=== PATIENT | male | born 1990 | race Caucasian/White ===

== ENCOUNTER 2020-05-18 09:25 | Emergency (ER) | payer OTHER ==
[2020-05-18] MEDS ORDERED: KETOROLAC 30 MG/ML VIAL IM STA (11:00)
--- NOTE | 2020-05-18 11:07 | ED Physician Documentation ---
History of Present Illness - Stated complaint Stated Complaint: BACK PX - Chief complaint Chief Complaint: Back Pain - History obtained from History obtained from: Patient - Additonal information Additional information: 30yM, previously healthy p/w BL lower back pain that started suddenly while walking. Constant, aching, nonradiating, worse with movement, moderate severity. denies fevers, weakness, sensory loss, fecal/urinary incontinence or retention or saddle anesthesia. Review of Systems Constitutional: denies: Fever Musculoskeletal: reports: Back pain Neurologic: denies: Focal weakness, Numbness PD PAST MEDICAL HISTORY - Past Medical History Past Medical History: No Cardiovascular: None Respiratory: None Neuro: None Endocrine/Autoimmune: None GI: Other : None HEENT: None Psych: None Musculoskeletal: None Derm: None - Past Surgical History Past Surgical History: No - Present Medications Home Medications: Ambulatory Orders Medication Instructions Recorded Confirmed Ibuprofen [Motrin] 600 mg PO Q6H PRN #30 tab 05/18/20 - Allergies Allergies/Adverse Reactions: Allergies Allergy/AdvReac Type Severity Reaction Status Date / Time Sulfa (Sulfonamide Allergy Unknown Verified 05/18/20 09:29 Antibiotics) - Social History Does the pt smoke?: No Smoking Status: Never smoker Does the pt drink ETOH?: Yes Does the pt have substance abuse?: No - Immunizations Immunizations are current?: Yes PD ED PE NORMAL - Vitals Vital signs reviewed: Yes - General General: Alert and oriented X 3, No acute distress, Well developed/nourished - Derm Derm: Normal color, Warm and dry, No rash - Extremities Extremities: No deformity, Other (2+ BL DP and PT pulses. normal strength, sensation, cap refill in BL LE) - Neuro Neuro: Alert and oriented X 3, No motor deficit, No sensory deficit Results - Vitals Vitals: Vital Signs - 24 hr 05/18/20 05/18/20 05/18/20 09:30 10:54 11:46 Temperature 36.6 C Heart Rate 101 H 101 H 92 Respiratory 18 18 16 Rate Blood Pressure 136/114 H 143/81 H 132/90 H O2 Saturation 98 98 99 Oxygen O2 Source Room air PD MEDICAL DECISION MAKING - ED course Complexity details: d/w patient ED course: 30yM presents with acute muscle strain to lower back, improved with toradol. Conservative home measures dsicussed. strict return precautions given. patient will f/u with his pmd. Departure - Departure Disposition: 01 Home, Self Care Clinical Impression: Back pain Condition: Good Instructions: ED Low Back Pain Injury Prescriptions: Ibuprofen [Motrin] 600 mg PO Q6H PRN #30 tab PRN Reason: Pain Comments: You are seen in the emergency department for lower back pain. Return to the emergency department if you develop any new or worsening symptoms or have other concerns. Follow-up with your primary doctor this week. Get lots of rest and ice and stretch gently. Forms: Activity restrictions Discharge Date/Time: 05/18/20 11:46
[2020-05-18 11:47] VITALS: BP 132/90
== END 2020-05-18 11:46 | disposition home or self-care (01) ==
LOC: ED 09:25
DX: S39.012A Strain of muscle, fascia and tendon of lower back, initial encounter (principal); X50.9XXA Other and unspecified overexertion or strenuous movements or postures, initial encounter; Y93.89 Activity, other specified
CPT/HCPCS: 96372; 99283